=== PATIENT | male | born 1990 | race Caucasian/White ===

== ENCOUNTER 2019-01-11 15:47 | Emergency (ER) | payer SELFPAY ==
[~2019-01-11] VITALS: Ht 182.9 cm; Wt 113.4 kg
--- NOTE | 2019-01-11 15:56 | NUR ---
patient in room 2b c/o pain right knee. right knee appears swollen no open breakdown. ice pack applied. noted misaligned right leg
[2019-01-11] MEDS ORDERED: IBUPROFEN 400 MG TABLET ONE (16:25)
[2019-01-11] MEDS ORDERED: HYDROCODONE/APAP 5-325MG TABLET ONE (16:26)
--- NOTE | 2019-01-11 16:26 | NUR ---
medicated for pain. motrin and norco given po.
[2019-01-11] MEDS ORDERED: HYDROCODONE/APAP 5-325MG TABLET PO ONE (16:30)
[2019-01-11] MEDS ORDERED: IBUPROFEN 400 MG TABLET PO ONE (16:30)
[2019-01-11 17:49] VITALS: BP 160/90
== END 2019-01-11 17:53 | disposition home or self-care (01) ==
LOC: ER 15:47
DX: S89.91XA Unspecified injury of right lower leg, initial encounter (principal); W17.89XA Other fall from one level to another, initial encounter; Y93.89 Activity, other specified; Y92.89 Other specified places as the place of occurrence of the external cause; Y99.8 Other external cause status
CPT/HCPCS: A4663

== ENCOUNTER 2019-01-12 19:23 | Emergency (ER) | payer SELFPAY | END 2019-01-12 19:45 | disposition left against medical advice (07) | LOC: ER 19:25 | DX: Z53.21 Procedure and treatment not carried out due to patient leaving prior to being seen by health care provider (principal) ==